=== PATIENT | male | born 1995 | race Caucasian/White ===

== ENCOUNTER 2017-01-06 15:01 | Emergency (ER) | payer BC, OTHER ==
[2017-01-06 15:06] VITALS: BP 128/67; PULSE 93; TEMP 98.6; BMI 20.8
[2017-01-06] MEDS ORDERED: IBUPROFEN 600 MG TABLET (FP) PO ONE ×2 (16:08→16:18)
--- NOTE | 2017-01-06 16:10 | PDOC ---
History of Present Illness - General Chief Complaint: Bite Stated Complaint: DOG BITE Time Seen by Provider: 01/06/17 15:36 History Source: Patient Exam Limitations: No Limitations - History of Present Illness Initial Comments: 01/06/17 16:06 21 yr male bit by pitbull to his left and right thumb left wrist while [facility] the pitbull attacked and killed the small dog states patient. Pt states he notified the [place] [employer] and they are aware of the dog and where the dog lives. The dog is being observed. Severity: reports: moderate Pain Location: reports: upper extremity (thumbs, left wrist ) Past History - Past Medical History Allergies/Adverse Reactions: Allergies Allergy/AdvReac Type Severity Reaction Status Date / Time No Known Allergies Allergy Unverified 01/06/17 15:02 Home Medications: Ambulatory Orders Amoxicillin/Potassium Clav [Augmentin 875-125 Tablet] 1 each PO BID #10 tablet 01/06/17 Other medical history: none - Immunization History Immunization Up to Date: Yes - Psycho/Social/Smoking Cessation Hx Anxiety: No Suicidal Ideation: No Smoking History: Never smoked Have you smoked in the past 12 months: No Information on smoking cessation initiated: No Hx Alcohol Use: No Drug/Substance Use Hx: No Substance Use Type: None Review of Systems - Review of Systems Able to Perform ROS?: Yes Is the patient limited Syriac proficient: No Integumentary: Yes: Symptoms Reported *Physical Exam - Vital Signs Last Vital Signs Temp Pulse Resp BP Pulse Ox 98.6 F 93 H 18 128/67 100 01/06/17 15:03 01/06/17 15:03 01/06/17 15:03 01/06/17 15:03 01/06/17 15:03 - Physical Exam General Appearance: Yes: Nourished HEENT: positive: EOMI, DENA Neck: positive: Supple Respiratory/Chest: positive: Lungs Clear, Normal Breath Sounds Cardiovascular: positive: Regular Rhythm, Regular Rate Musculoskeletal: positive: Normal Inspection Extremity: positive: Normal Capillary Refill, Other (left inner wrist volar surface with superficial bite, no active bleeding, circular pattern . left thumb at the pip with puncture wound 0.5cm no bleeding FROM nv intact no tendon involvement. Right thumb at the pip joint with superficial punture wound 0.25cm , no active bleeding, from of the thumb nv intact no tendon involvement ) Integumentary: positive: Normal Color, Dry, Warm, Other (left knee with abrasion , left thumb, right thumb with puncture wound dog bites, biote to left inner wrist superficial no active bleeding) Neurologic: positive: Fully Oriented, Alert, Normal Mood/Affect, Normal Response , Motor Strength 5/5 Procedures - Additional Procedures Progress: 01/06/17 16:10 dog bites and abrasion to left knee cleaned with saline and betadine, irrigated puncture wounds with copious amounts of saline bacitracin placed and bandaids nv intact FROM of the hand, thumb 01/06/17 19:10 Medical Decision Making - Medical Decision Making 01/06/17 16:11 cc: dog bite abrasion to knee tetnaus is UTD will clean the wounds and place on 3 days augmentin as the bites are on the hands pt has no medical history motrin for pain [facility] and area [place] of the dog and the field technical assistant who states the shots are UTD. pt does not meet indication for rabies PEP at this time will dc home 01/06/17 16:12 01/06/17 19:12 *DC/Admit/Observation/Transfer Diagnosis at time of Disposition: Abrasion Dog bite Qualifiers: Encounter type: initial encounter Qualified Code(s): W54.0XXA - Bitten by dog, initial encounter - Discharge Dispostion Disposition: HOME Condition at time of disposition: Good - Prescriptions Prescriptions: Amoxicillin/Potassium Clav [Augmentin 875-125 Tablet] 1 each PO BID #10 tablet - Referrals Referrals: Timmy Chang MD [Primary Care Provider] - - Patient Instructions Printed Discharge Instructions: DI for Animal Bites Additional Instructions: keep wounds clean and dry with antibacterial soap and water apply bacitracin daily take the augmentin as prescribed for 5 days follow with your doctor for any worsening symptoms, redness or drainage or pain you can take motrin for pain
== END 2017-01-06 16:23 | disposition home or self-care (01) ==
LOC: JERFT 15:01
DX: S60.371A Other superficial bite of right thumb, initial encounter (principal); S60.372A Other superficial bite of left thumb, initial encounter; S80.212A Abrasion, left knee, initial encounter; W54.0XXA Bitten by dog, initial encounter; Y93.K1 Activity, walking an animal; Y92.480 Sidewalk as the place of occurrence of the external cause
CPT/HCPCS: 99281-25